=== PATIENT | male | born 1945 | race Caucasian/White ===

== ENCOUNTER 2020-08-19 12:19 | Day surgery (SDC) | payer MEDICARE, BC ==
[~2020-08-19] VITALS: Ht 177.8 cm; Wt 110.3 kg
--- NOTE | ~2020-08-19 | OP ---
PATIENT NAME: MARTI ANN MEDICAL RECORD: [id number] :[birth year] LOCATION:D.CAT ADMISSION DATE: SURGEON: CESAR HADLEY MD DATE OF OPERATION: 08/19/2020 PREOPERATIVE DIAGNOSES: 1. End-of-life pacemaker generator. 2. Atrial fibrillation. 3. Hypertension. 4. Diabetes mellitus. 5. Congestive heart failure, undifferentiated. POSTOPERATIVE DIAGNOSES: 1. End-of-life pacemaker generator. 2. Atrial fibrillation. 3. Hypertension. 4. Diabetes mellitus. 5. Congestive heart failure, undifferentiated. PROCEDURE: Right subclavian vein single lead pacemaker generator exchange. SURGEON: Cesar Hadley MD REPORT OF PROCEDURE: The patient's right chest was prepped and draped in sterile fashion. A total of 10 mL of 1% lidocaine with epinephrine was infused in the surrounding tissues. A transverse incision was made through an old scar overlying the pacemaker. Electrocautery was used to dissect through the subcutaneous tissue and the pacemaker and the lead were eviscerated through the wound. A new pacemaker generator was affixed to the lead and these were both placed in the subcutaneous pouch and sutured down with a single interrupted 2-0 Ti-Cron. We irrigated out the wound bed with antibiotic solution. The subcutaneous tissues were reapproximated with interrupted 3-0 Vicryl and the skin was closed with running subcutaneous 5-0 Monocryl. COMPLICATIONS: None. CONDITION: Stable. ANESTHESIA: Local MAC. BLOOD LOSS: Minimal. TRANSINT:[id number] Voice Confirmation ID: [id number] DOCUMENT ID: [id number] CESAR HADLEY MD CC: KELLIE BENTON MD [id number] DICTATION DATE: 08/19/20 1458 [employer] DRIVER: 08/19/20 1706 [facility] 08/19/20 [id number] [place] [address]
--- NOTE | ~2020-08-19 | HEMODYNAMI ---
PATIENT:MARTI ANN MEDICAL RECORD: [id number] : 45 LOCATION:D.CAT ADMISSION DATE: 08/19/20 Generatedon:115:01 Patient name: MARTI ANN Patient #: [id number] SSN: [id number] : 1945 Date of study: 08/19/2020 Page: Of Hemodynamic Procedure Report Patient Data Patient Demographics Procedure consent was obtained First Name: MARTI Gender: Male Last Name: SETH : 1945 Middle Initial: RAY Age: 74 year(s) Patient #: [id number] Race: SSN: [id number] Additional ID: [id number] Contact details Address: [address] [place] [address] State: [place] City: [place] Zip code: [address] Past Medical History Allergies: No known allergies Admission Admission Data Admission Date: 08/19/2020 Admission Time: 12:19 Arrival Date: 08/19/2020 Arrival Time: 0:00 Admit Source: Other Insurance Payor: Medicare [facility] #: [id number] Height (in.): 70 BSA: 2.27 (m2) Height (cm.): 177.8 BMI: 34.88 (kg/m2) Weight (lbs.): 243.11 Weight (kg.): 110.27 Lab Results Lab Result Date: 08/19/2020 Lab Result Time: 0:00 Biochemistry Name Units Result Min Max BUN mg/dl 24 --(----)-* 7 18 Creatinine mg/dl 1 --(--*-)-- 0.6 1.3 eGFR ml/min 78 *-(----)-- 90 120 NONAFRICAN CBC Name Units Result Min Max Hematocrit % 43.7 --(*---)-- 42 54 Hemoglobin g/dl 15.2 --(-*--)-- 13.5 17.5 Procedure Procedure Types Cath Procedure Diagnostic Procedure PPM/ICD Permanent Pacer Generator Exg. Sedation Charges Moderate Sedation 10-24 minutes Procedure Description Procedure Date Procedure Date: 08/19/2020 Procedure Start Time: 14:43 Procedure End Time: 14:59 Procedure Staff Name Function Ankit Staples MD Performing Physician Rio Freeman MD Assisting physician Krystin Kaiser RT Monitor Anita Boss RT Scrub Deonte Church RN Nurse Sreekanth Ortega RN Nurse Procedure Data Cath Procedure Fluoroscopy Diagnostic fluoroscopy Total fluoroscopy Time: 0 time: 0 min min Diagnostic fluoroscopy Total fluoroscopy dose: 0 dose: 0 mGy mGy Estimated blood loss: 10 ml Procedure Complications No complications Procedure Medications Medication Administration Route Dosage Oxygen etCO2 Nasal cannula 2 l/min Ancef (1Gm/50ml NS) I.V.P.B 1 g Ancef Irrigation Topical 1 g (1gm/500ml NS) 0.9% NaCl I.V. 50 ml/hr Lidocaine 1% added to field 20 Fentanyl I.V. 50 mcg Versed 1 mg Versed 1 mg Fentanyl I.V. 50 mcg Hemodynamics Rest BSA: 2.27 (m2) HGB: 15.2 (g/dl) O2 Consumption: Estimated: 290.33 (ml/min) O2 Co nsumption indexed: Estimated:127.9 (ml/min/m) Heart Rate: 104 (bpm) Snapshots Pre Cath Intra NCS Post Cath Vital Signs Time Heart Resp SPO2 NIBP (mmHg) Rhythm Pain Sedation Rate (ipm) (%) Status Level (bpm) 14:35:17 111 25 96 136/89(106) NSR 0 (11) 10(A) , No pain 14:39:27 91 15 95 139/85(109) NSR 0 (11) 10(A) , No pain 14:43:39 87 27 92 126/81(102) NSR 0 (11) 9(A) , No pain 14:47:55 186 10 95 131/64(111) NSR 0 (11) 9(A) , No pain 14:52:09 59 11 98 127/72(118) NSR 0 (11) 9(A) , No pain 14:56:23 59 20 97 122/69(97) NSR 0 (11) 10(A) , No pain 15:00:35 60 16 94 133/72(108) NSR 0 (11) 10(A) , No pain Medications Time Medication Route Dose Verified Delivered Reason Notes Effectiv eness by by 14:32:50 Oxygen etCO2 2 Ankit Sreekanth used for Nasal l/min St Ken Ortega RN procedure cannula 14:33:00 Ancef I.V.P.B 1 g Ankit Sreekanth used for (1Gm/50ml St Ken Ortega RN procedure NS) 14:33:06 Ancef Topical 1 g Ankit Sreekanth for local Irrigation St Ken Ortega RN anesthetic (1gm/500ml NS) 14:33:37 0.9% NaCl I.V. 50 Ankit Sreekanth Per ml/hr St Ken Ortega RN physician 14:34:16 Lidocaine added 20ml Ankit Metzgerian for local 1% to vial St Ken Freeman MD anesthetic field x 2 14:41:21 Fentanyl I.V. 50 Ankit Sreekanth for [facility] St Ken Ortega RN sedation 14:41:25 Versed [address] Ken Ortega RN, MD 14:44:26 Versed [address] Ken Ortega RN, MD 14:44:29 Fentanyl I.V. 50 Ankit Sreekanth for [facility] St Ken Ortega RN sedation Procedure Log Time Note 14:19:17 Informed consent obtained and on chart 14:19:44 Diagnostic Cath Status : Elective 14:20:03 Admit Source: Other 14:20:05 ACC Patient presents with Unstable Angina CCS Anginal Class 2--Slight limitation of ordinary activity. 14:20:10 Procedure Status PPM/ Gen Change/ Lead Revision/ Temp. 14:20:13 Deonte Church RN sent for patient. Start room use. 14:20:30 Time tracking: Regular hours (M-F 7:00 - 5:00) 14:20:34 Plan of Care:Hemodynamics will remain stable., Cardiac rhythm will remain stable., Comfort level will be maintained., Respiratory function will remain adequate., Patient/ family verbilizes understanding of procedure., Procedure tolerated without complication., Recovers from procedure without complications.. 14:20:43 H&P Date Dictated: 08/16/2020 Within 30 days and on chart.. 14:20:45 Pre-procedure instructions explained to patient. 14:20:45 Pre-op teaching completed and patient verbalized understanding. 14:20:47 Family in waiting room. 14:20:48 Patient NPO since Midnight. 14:20:55 Patient allergic to No known allergies 14:: Lab Result : BUN 24 mg/dl 14:: Lab Result : Creatinine 1 mg/dl 14:: Lab Result : eGFR NONAFRICAN 78 ml/min 14:: Lab Result : Hemoglobin 15.2 g/dl 14:: Lab Result : Hematocrit 43.7 % 14:: Lab results completed and on chart. 14:21:35 Stress Test: no; N/A ? 14:21:36 Alarms reviewed by R. N. 14:21:36 Sharps counted by scrub and verified by R.N. 14::18 Arrival Date: 08/19/2020 12:00:00 AM 14:22:21 Patient Height : 70 inches 14:22:26 Patient Weight : 243.11 lbs 14:22:31 Insurance Payor : Medicare 14:26:15 Patient received from Pre/Post Procedure Room to [facility] 3 Alert and oriented. Tansferred to table in Supine position. 14:26:16 Warm blankets applied, and philip hugger turned on for patient comfort. 14:26:17 Correct patient and procedure confirmed by team. 14:26:18 ECG and BP/O2 sat monitors applied to patient. 14:26:19 Full Disclosure recording started 14:26:21 Is the patient allergic to Iodine/contrast media? No. 14:26:23 Was the patient premedicated? Yes 14:26:24 Is patient on blood thinner?No 14:26:27 Patient diabetic? Yes. 14:26:31 If diabetic: On Metformin? No 14:26:32 ----Pre-sedation anethsthesia assessment.---- 14:26:35 Previous problem with sedation/anesthesia? No ? 14:26:36 Snore? Yes 14:26:45 Use device set JOMAR PPM 14:26:47 2-0 Ticron Multipack ([id number]) opened to sterile field. 14:26:48 3-0 Vicryl Single Pack [id number] opened to sterile field. 14:26:49 5-0 Monocryl PS2 [id number] opened to sterile field. 14:26:50 Cautery Tip Check Writing Machine Operator opened to sterile field. 14:26:51 Cautery Pushbutton Pencil opened to sterile field. 14:26:51 Mepilex Dressing ([id number]) opened to sterile field. 14:32:50 Oxygen 2 l/min etCO2 Nasal cannula was administered by Sreekanth Ortega RN; used for procedure; Verbal order read back and verified. 14:33:00 Ancef (1Gm/50ml NS) 1 g I.V.P.B was administered by Sreekanth Ortega RN; used for procedure; Verbal order read back and verified. 14:33:06 Ancef Irrigation (1gm/500ml NS) 1 g Topical was administered by Sreekanth Ortega RN; for local anesthetic; Verbal order read back and verified. 14:33:37 0.9% NaCl 50 ml/hr I.V. was administered by Sreekanth Ortega RN; Per physician; Verbal order read back and verified. 14:34:16 Lidocaine 1% 20ml vial x 2 added to field was administered by Rio Freeman MD; for local anesthetic; Verbal order read back and verified. 14:34:18 Vital chart was started 14:37:43 Baseline sample Acquired. 14:37:47 Rhythm: atrial fibrillation 14:37:52 Sleep apnea? Unknown 14:37:53 Deviated septum? No 14:37:54 Opens mouth fully? Yes 14:37:55 Sticks out tongue? Yes 14:37:58 Airway obstruction? No ? 14:37:59 Dentures? No ? 14:38:04 Patient pain scale 0/10 ?. 14:38:09 IV patent on arrival in left antecubital with 0.9% NaCl at O. 14:38:24 Right chest area was prepped with chlora-prep and draped in sterile fashion 14:38:39 [employer]onic rental sales representative RONALD PRYOR present for procedure. 14:41:03 --------ALL STOP TIME OUT------ 14:41:04 Final Timeout: patient, procedure, and site verified with staff and physician. All members of the team are in agreement. 14:41:06 Left chest site verified by team. 14:41:10 Fire Safety Assessment: A--An alcohol-based skin anteseptic being used preoperatively., B--The operative or invasive procedure is being performed above the xiphoid process or in the oropharynx., C--Open oxygen or nitrous oxide is being used., D--An ESU, laser, or fiber-optic light is being used. 14:41:15 Physical assessment completed. ASA score P 2 - A patient with mild systemic disease as per Ankit Staples MD. 14:41:19 Sedation plan: IV Moderate Sedation Medication:Versed, Fentanyl 14:41:21 Fentanyl 50 mcg I.V. was administered by Sreekanth Ortega RN; for sedation; Verbal order read back and verified. 14:41:25 Versed 1 mg was administered by Sreekanth Ortega RN; ; Verbal order read back and verified. 14:42:25 Procedure started. 14:42:48 Pre sharps counted by scrub and verified by RN: Sutures: 7; Sponges: 5; Stick needles: 2; Skin needles: 2; Blade: 1; Cautery: 1 14:42:53 Grounding pad site Left thigh. 14:42:54 Grounding pad site free from injury. 14:43:00 Lidocaine 1% was administered to right subclavicular area by Rio Freeman MD . 14:44:26 Versed 1 mg was administered by Sreekanth Ortega RN; ; Verbal order read back and verified. 14:44:29 Fentanyl 50 mcg I.V. was administered by Sreekanth Ortega RN; for sedation; Verbal order read back and verified. 14:45:02 Incision made to right subclavicular area. 14:45:08 Generator pocket made/opened. 14:47:16 Medtronic NUSRAT XT SR Generator [id number] opened to sterile field. 14:48:24 PPM Dual was attached to lead(s) and inserted into pocket. 14:51:36 Generator was sutured in place with 2-0 ticron. 14:52:19 Device pocket was irrigated with Ancef. 14:53:35 Subcutaneous closure was completed with 3-0 vicryl. 14:54:30 Skin closure was completed with 5-0 monocryl. 14:56:22 Rt Chest incision was dressed with Mepilex dressing. 14:56:30 Procedure ended.(Physican Out) 14:57:34 Fluoroscopy time 00.00 minutes. 14:57:36 Fluoroscopy dose: 0 mGy 14:57:36 Flurop Dose total: 0 14:57:38 Dose Area Product ? mGy/cm. 14:57:41 Sharps counted by scrub and verified by R.N. 14:57:47 Post-procedure physical assessment completed. ASA score P 2 - A patient with mild systemic disease as per Ankit Staples MD. 14:57:53 Post procedure rhythm: sinus rhythm 14:57:57 Estimated blood loss: 10 ml 14:57:58 Post procedure instruction explained to patient.Patient verbalizes understanding. 14:57:59 Patient needs reinforcement of post procedure teaching. 14:58:23 Procedure type changed to Cath procedure, Diagnostic procedure, PPM/ICD, Permanent Pacer Generator Exg., Sedation Charges, Moderate Sedation 10-24 minutes 14:59:11 Procedure and supply charges have been captured, reviewed, submitted and are correct. 14:59:27 Procedure Complication : No complications 14:59:43 Operative report dictated upon procedure completion. 14:59:43 See physician's report for complete and final results. 14:59:45 Report given to Pre/Post Procedure Room. 14:59:48 Patient transfered to Pre/Post Procedure Room with Stretcher. 14:59:49 Procedure ended. 14:59:49 Full Disclosure recording stopped 14:59:53 End room use (Document Last) 15:00:21 End room use (Document Last) 15:01:35 Vital chart was stopped Device Usage Item Name Manufacture Quantity Catalog Hospital Part Current Minima l Lot# / Number Charge Number Stock Stock Serial# Code 2-0 Ticron Ethicon 9 [id number] 5 Multipack ([id number]) 3-0 Vicryl Ethicon 1 [id number] [id number] 5 Single Pack [id number] 5-0 Monocryl Ethicon 1 [id number] 675141 158740 5 PS2 Y495G Cautery Tip Microtek 1 [id number] 5 Check Writing Machine [employer] Cautery Microtek 1 [id number] [id number] 5 Push[employer] Pencil Mepilex Cardinal 1 [id number] [id number] 5 [facility] ([id number]) Medtronic Medtronic 1 [id number] 5 NUSRAT XT SR [id number] Generator EXP: [id number] 09/10/2021 Signature Audit [place] Stage Time Signature Unsigned Intra-Procedure 08/19/2020 Krystin Kaiser 3:00:21 PM RT(R) Intra-Procedure 08/19/2020 Deonte Church RN 3:00:56 PM Intra-Procedure 08/19/2020 Ankit Farmer 3:01:33 PM Ken [facility] [address] [place] [address]
[2020-08-19] MEDS ORDERED: LISINOPRIL20 MG PO (13:02)
[2020-08-19] MEDS ORDERED: ALDACTONE50 MG PO (13:02)
[2020-08-19] MEDS ORDERED: LIPITOR40 MG PO (13:03)
[2020-08-19] MEDS ORDERED: BUMETANIDE0.5 MG PO (13:03)
[2020-08-19] MEDS ORDERED: NORVASC10 MG PO (13:03)
[2020-08-19] MEDS ORDERED: METFORMIN HCL500 M1 PO (13:04)
[2020-08-19] MEDS ORDERED: LANTUS INS100 UNITS/ SC (13:05)
[2020-08-19 13:11] VITALS: BP 132/76; Ht 177.8 cm; Wt 110.3 kg
[2020-08-19 13:14] LABS: HEMATOCRIT 43.7 % (42.0-54.0); HEMOGLOBIN 15.2 g/dL (13.5-17.5); MCH 31.7 pg (26.0-34.0); MCHC 34.8 g/dL (31.0-37.0); MEAN PLATELET VOLUME 10.2 fL (7.4-10.4); RBC 4.8 10x6/uL (4.20-6.10); RDW 12.9 % (11.5-14.5); WBC 6.2 10x3/uL (4.8-10.8)
[2020-08-19 13:21] LABS: CALC OSMOLALITY 284 mosm/kg (275-300); CALCIUM 9.7 mg/dL (8.5-10.1); CARBON DIOXIDE 25.6 mmol/L (21.0-32.0); CHLORIDE - SERUM 105 mmol/L (98-107); GLUCOSE 143 mg/dL (74-106); POTASSIUM - SERUM 4.2 mmol/L (3.5-5.1); SODIUM 140 mmol/L (136-145); UREA NITROGEN 24 mg/dL (7-18); eGFR NON AFRICAN AMERICAN 78 mL/min (90-120)
[2020-08-19 13:32] LABS: APTT 29.8 SECONDS (22.8-39.4); INR 1.19 (0.85-1.17)
[2020-08-19] MEDS ORDERED: HYDROCODONE-AC1 EAC2 PO (15:00)
--- NOTE | 2020-08-19 15:10 | NUR ---
PT ARRIVED BY STRETCHER. PLACED ON MONITORS. ASSESSMENT COMPLETED. FAMILY AT BEDSIDE. CALL LIGHT WITHIN REACH.
--- NOTE | 2020-08-19 15:25 | NUR ---
PT RESTING COMFORTABLY. NO NEEDS AT THIS TIME. RIGHT CHEST DRESSING C/D/I. NO S/S OF HEMATOMA NOTED. CALL LIGHT WITHIN REACH.
--- NOTE | 2020-08-19 15:50 | NUR ---
RIGHT UPPER CHEST DRESSING C/D/I. NO S/S OF HEMATOMA NOTED. CALL LIGHT WITHIN REACH. NO NEEDS AT THIS TIME. PT REFUSING SANDWICH. HE WANTS TO EAT WHEN HE LEAVES.
--- NOTE | 2020-08-19 16:15 | NUR ---
PIV D/C'D WITH CATH TIP INTACT. TOLERATED WELL. RIGHT UPPER CHEST DRESSING C/D/I. NO S/S OF HEMATOMA NOTED. DISCUSSED DISCHARGE INSTRUCTIONS WITH PT AND PT'S . THEY VOICED UNDERSTANDING. PT INSTRUCTED TO GET UP AND DRESSED AT THIS TIME. NO ASSISTANCE NEEDED. FAMILY AT BEDSIDE AND CALL LIGHT LEFT WITHIN REACH.
--- NOTE | 2020-08-19 16:20 | NUR ---
PT AMBULATED TO RESTROOM. VOIDED WITHOUT DIFFICULTY. STEADY GAIT NOTED. PT REFUSED WHEELCHAIR. AMBULATED TO CARE. STEADY GAIT NOTED. NO S/S OF DISTRESS NOTED AND ALL BELONGINGS AND PAPERWORK IN HAND.
== END 2020-08-19 16:20 | disposition home or self-care (01) ==
LOC: D.CATH 12:19
PROVIDERS: ATTEND Internal Medicine Interventional Cardiology
DX: I48.91 Unspecified atrial fibrillation (principal); E11.9 Type 2 diabetes mellitus without complications; I50.9 Heart failure, unspecified; Z45.010 Encounter for checking and testing of cardiac pacemaker pulse generator [battery]; I11.0 Hypertensive heart disease with heart failure; I10 Essential (primary) hypertension; Z79.4 Long term (current) use of insulin